=== PATIENT | male | born 1960 | race Caucasian/White ===

== ENCOUNTER 2018-01-27 08:03 | Emergency (ER) | payer SELFPAY ==
[~2018-01-27] VITALS: Ht 182.9 cm; Wt 128.7 kg
[~2018-01-27 08:03] MED LIST: BACL20TA PO; TOPI25TA8 PO; TRAZ300T2 PO
[2018-01-27] MEDS ORDERED: BUPR-86 PO (08:25)
[2018-01-27] MEDS ORDERED: HYDR25TA11 PO (08:26)
[2018-01-27] MEDS ORDERED: KETOROLAC 30 MG/1 ML ONE (08:56)
[2018-01-27] MEDS ORDERED: KETOROLAC 30 MG/1 ML IM ONE (09:00)
[2018-01-27 10:16] VITALS: BP 139/90
== END 2018-01-27 10:31 | disposition home or self-care (01) ==
LOC: ED 09:58
DX: S76.912A Strain of unspecified muscles, fascia and tendons at thigh level, left thigh, initial encounter (principal); S80.02XA Contusion of left knee, initial encounter; Z85.038 Personal history of other malignant neoplasm of large intestine; X58.XXXA Exposure to other specified factors, initial encounter; Y93.89 Activity, other specified; Y92.89 Other specified places as the place of occurrence of the external cause; Y99.0 Civilian activity done for income or pay
CPT/HCPCS: 73564; 93971; 96372; 99284; J1885

== ENCOUNTER 2018-10-17 19:04 | Inpatient (IN) | payer MEDICAID ==
[~2018-10-17] VITALS: Ht 182.9 cm; Wt 118.3 kg
[~2018-10-17 19:04] MED LIST changes: +BUPR-86 PO; +HYDR25TA11 PO
--- NOTE | 2018-10-17 19:22 | NUR ---
PT REPORTS UPPER LEFT ABD PAIN X PAST 4 WEEKS SEEN AT [facility] FOR SAME X 3 PER PT. per trige note
[2018-10-17 20:17] LABS: MEAN CORPUSCULAR HEMOGLOBIN 28.7 pg (27.5-34.5); MEAN CORPUSCULAR HGB CONC 32.6 g/dL (33.2-36.2); MEAN CORPUSCULAR VOLUME 88.1 fL (81-97); PLATELET COUNT 357 x10^3/uL (130-400); RED BLOOD COUNT 4.16 x10^6/uL (4.38-5.82); RED CELL DISTRIBUTION WIDTH 14.7 % (9.4-14.8)
[2018-10-17 20:28] LABS: ALANINE AMINOTRANSFERASE 43 U/L (12-78); ALBUMIN 2.6 g/dL (3.4-5.0); ANION GAP 5 mmol/L (5-15); CALCIUM 8.6 mg/dL (8.5-10.1); CHLORIDE 107 mmol/L (98-107)
[2018-10-17 20:31] LABS: ALKALINE PHOSPHATASE 99 U/L (45-117); BILIRUBIN,TOTAL 0.4 mg/dL (0.2-1.0); CREATININE 1.02 mg/dL (0.7-1.3); TOTAL PROTEIN 7.1 g/dL (6.4-8.2)
[2018-10-17 20:51] LABS: MD YES
[2018-10-17 20:54] LABS: <PLATELET ESTIMATE> ADEQUATE; <PLT MORPHOLOGY> NORMAL PLT MORPH; <RBC MORPHOLOGY> NORMAL; BAND#(MANUAL) 1.27 x10^3/uL; BANDS%(MANUAL) 10 % (0-7); BASOS#(MANUAL) 0.25 x10^3/uL (0-0.1); BASOS% (MANUAL) 2 % (0-1); EOS% (MANUAL) 11 % (1-7); LYMPH#(MANUAL) 1.27 x10^3/uL (1-3.4); LYMPHS% (MANUAL) 10 % (22-44); METAMYELOCYTES# (MANUAL) 0.25 x10^3/uL (0-0); METAMYELOCYTES% (MANUAL) 2 % (0-1); MONOS#(MANUAL) 1.27 x10^3/uL (0.3-2.7); MONOS% (MANUAL) 10 % (2-9); REACTIVE LYMPHS # (MANUAL) 0.13 x10^3/uL (0-0); REACTIVE LYMPHS % (MANUAL) 1 % (0-0); SEG#(MANUAL) 6.86 x10^3/uL (1.8-6.8); SEGS% (MANUAL) 54 % (42-75)
[2018-10-17] MEDS ORDERED: SODIUM CHLORIDE 0.9% 1,000 ML IV ONE (21:25)
[2018-10-17] MEDS ORDERED: SODIUM CHLORIDE FLUSH 10ML SYR IVF ONE (21:30)
--- NOTE | 2018-10-17 21:59 | NUR ---
PT POSSIBLE ADMIT WITH [facility]. CALLED [facility], SPOKE WITH JOSÉ MIGUEL WHO GAVE VERBAL DENIAL TO TRANSFER PT.
[2018-10-17] MEDS ORDERED: HYDROmorphone 1 MG/ML, 1ML ONE (22:15)
[2018-10-17] MEDS ORDERED: HYDROmorphone 1 MG/ML, 1ML IV ONE (22:30)
[2018-10-17] MEDS ORDERED: NICOTINE 7 MG/24 HR PATCH.TD24 TD SCH (22:30)
[2018-10-17] MEDS ORDERED: POTASSIUM CHLORIDE 20 MEQ TAB.ER.PRT PO ONE (22:30)
--- NOTE | 2018-10-17 22:45 | NUR ---
Report called to [facility]
[2018-10-17] MEDS: KETOROLAC 30 MG/1 ML IV PRN (23:13)
[2018-10-17] MEDS: LACTATED RINGERS 1,000 ML IV SCH (23:25)
[2018-10-17] MEDS ORDERED: TRAZODONE 100MG TABLET PO SCH (23:30)
[2018-10-17 23:44] VITALS: BP 135/84
[2018-10-18] MEDS: PANCRELIPASE 5000 CAPSULE.DR PO SCH ×3 (00:09→16:00)
[2018-10-18] MEDS: ACETAMINOPHEN 500 MG TABLET PO PRN ×3 (00:21→16:00)
[2018-10-18 01:27] VITALS: BP 115/73
[2018-10-18] MEDS: LACTATED RINGERS 1,000 ML IV SCH ×3 (04:25→15:00)
[2018-10-18] MEDS: KETOROLAC 30 MG/1 ML IV PRN ×2 (05:26→11:35)
[2018-10-18 05:35] LABS: BASOPHILS # (AUTO) 0.05 x10^3/uL (0-0.1); BASOPHILS % (AUTO) 1 % (0-1); EOSINOPHILS % (AUTO) 7 % (1-7); LYMPHOCYTES # (AUTO) 1.14 x10^3/uL (1-3.4); LYMPHOCYTES % (AUTO) 11 % (22-44); MD NO; MEAN CORPUSCULAR HEMOGLOBIN 29.7 pg (27.5-34.5); MEAN CORPUSCULAR HGB CONC 33.3 g/dL (33.2-36.2); MEAN CORPUSCULAR VOLUME 89.2 fL (81-97); MEAN PLATELET VOLUME 8.1 fL (7.4-10.4); MONOCYTES # (AUTO) 0.87 x10^3/uL (0.2-0.8); MONOCYTES % (AUTO) 9 % (2-9); NEUTROPHILS # (AUTO) 7.36 x10^3/uL (1.8-6.8); NEUTROPHILS % (AUTO) 73 % (42-75); PLATELET COUNT 344 x10^3/uL (130-400); RED BLOOD COUNT 3.87 x10^6/uL (4.38-5.82)
[2018-10-18 05:40] LABS: ANION GAP 5 mmol/L (5-15); CALCIUM 8.3 mg/dL (8.5-10.1); CHLORIDE 110 mmol/L (98-107); CREATININE 0.79 mg/dL (0.7-1.3); TRIGLYCERIDES 113 mg/dL (50-200)
[2018-10-18 06:44] VITALS: BP 130/72
[2018-10-18] MEDS ORDERED: TEMPLATE NON-FORMULARY MED. (Bupropion Hcl** (Wellbutrin Xl**) 150 MG) HOMEMEDPO SCH (09:00)
[2018-10-18] MEDS ORDERED: PANCRELIPASE PO (12:05)
[2018-10-18 13:27] VITALS: BP 150/91
== END 2018-10-18 16:20 | disposition home or self-care (01) | DRG 438 ==
LOC: ED 21:40 → SUATTDRO 22:00 → EDIP 22:07 → 4WST 22:58 → DCLOUNGE 10-18 16:02
PROVIDERS: ADMIT Hospitalist; ATTEND Hospitalist
DX: K85.20 Alcohol induced acute pancreatitis without necrosis or infection (principal); E43 Unspecified severe protein-calorie malnutrition; K86.3 Pseudocyst of pancreas; D64.9 Anemia, unspecified; K86.0 Alcohol-induced chronic pancreatitis; F10.20 Alcohol dependence, uncomplicated; F17.210 Nicotine dependence, cigarettes, uncomplicated; K59.00 Constipation, unspecified; F32.9 Major depressive disorder, single episode, unspecified; Z68.35 Body mass index [BMI] 35.0-35.9, adult; Z85.038 Personal history of other malignant neoplasm of large intestine; Z90.49 Acquired absence of other specified parts of digestive tract
CPT/HCPCS: 36415; 80048; 80053; 83690; 83735; 84100; 84478; 85025; G0378; J1170; J1885; J7030; J7120